=== PATIENT | male | born 1955 | race Caucasian/White ===

== ENCOUNTER 2017-11-12 09:16 | Emergency (ER) | END 2017-11-12 11:08 | disposition home or self-care (01) ==

== ENCOUNTER 2018-04-08 23:00 | Emergency (ER) | END 2018-04-09 02:25 | disposition home or self-care (01) ==

== ENCOUNTER 2018-08-27 20:16 | Emergency (ER) | payer OTHER ==
[~2018-08-27] VITALS: Wt 80.0 kg
[~2018-08-27 20:16] MED LIST: ACET325T33 PO; AZIT250T PO; IBUP-1542 PO
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
[2018-08-27] MEDS ORDERED: HYDROCODONE/APAP (5/325) TAB PO ONE (22:30)
[2018-08-28] MEDS ORDERED: IBUP-1542 PO (00:18)
[2018-08-28] MEDS ORDERED: HYDR-4011 PO (00:18)
[2018-08-28 00:36] VITALS: BP 169/91; PULSE 85; RESP 18
== END 2018-08-28 00:38 | disposition home or self-care (01) ==
LOC: FTE 20:16
DX: S22.42XA Multiple fractures of ribs, left side, initial encounter for closed fracture (principal); F17.210 Nicotine dependence, cigarettes, uncomplicated; V18.4XXA Pedal cycle driver injured in noncollision transport accident in traffic accident, initial encounter
CPT/HCPCS: 71100; Z7502; Z7610

== ENCOUNTER 2019-01-10 23:31 | Inpatient (IN) | payer OTHER ==
[~2019-01-10] VITALS: Ht 190.5 cm; Wt 64.9 kg
[~2019-01-10 23:31] MED LIST changes: +DOCU-144 PO; +GUAI-637 PO; +HYDR-4011 PO; +METO-335 PO
[2019-01-10] MEDS ORDERED: SOD CHLORIDE 0.9% 1,000 ML IV STA (23:59)
[2019-01-11] VITALS (16 sets, daily range): BP systolic 99–141; BP diastolic 68–101; PULSE 59–139; RESP 12–22; Ht 190.5 cm; Wt 64.9 kg
[2019-01-11] MEDS ORDERED: ASPIRIN 81 MG TAB PO ONE (00:30)
[2019-01-11] MEDS ORDERED: ENALAPRILAT 1.25 MG INJ IV ONE (00:30)
[2019-01-11] MEDS ORDERED: NACL 0.9% 3 ML SYG IV SCH (02:00)
[2019-01-11] MEDS ORDERED: ONDANSETRON 4 MG INJ IV PRN (02:00)
[2019-01-11] MEDS ORDERED: NITROGLYCERIN (SL) 0.4 MG TAB SL PRN (02:00)
[2019-01-11] MEDS ORDERED: DOCUSATE SODIUM 100 MG CAP PO PRN (02:00)
[2019-01-11] MEDS ORDERED: ACETAMINOPHEN 325 MG TAB PO PRN (02:00)
[2019-01-11] MEDS ORDERED: BISACODYL (EC) 5 MG TAB PO PRN (02:00)
[2019-01-11] MEDS ORDERED: IOHEXOL 100 ML ONE (02:14)
[2019-01-11] MEDS ORDERED: SOD CHLORIDE 0.9% 100 ML ONE (02:14)
[2019-01-11] MEDS ORDERED: ENOXAPARIN 60 MG/0.6 ML SYG SC ONE (05:00)
[2019-01-11] MEDS ORDERED: DILTIAZEM 25 MG INJ IV ONE (07:00)
[2019-01-11] MEDS ORDERED: NACL 3% FOR INHALATION 15 ML NEBU NEB ONE (07:30)
[2019-01-11] MEDS ORDERED: METOPROLOL 5 MG INJ IV PRN (07:30)
[2019-01-11] MEDS ORDERED: MAGNESIUM SULFATE 2 GM/50 ML 50 ML IVPB ONE (07:30)
[2019-01-11] MEDS: ASPIRIN 81 MG TAB PO SCH (08:29)
[2019-01-11] MEDS: POTASSIUM CHLORIDE (SR) 20 MEQ TAB PO SCH ×2 (08:30→20:21)
[2019-01-11] MEDS: morphine 2 MG INJ IV PRN ×2 (12:38→20:20)
[2019-01-11] MEDS ORDERED: LIDOCAINE 1% (MDV) 20 ML INJ ONE (16:01)
[2019-01-11] MEDS ORDERED: FENTAnyl 50 MCG/ML VIAL ONE (16:38)
[2019-01-11] MEDS ORDERED: CEFAZOLIN 1 GM/50 ML (PMX) 50 ML IVPB ONE (16:52)
[2019-01-11] MEDS ORDERED: SOD CHLORIDE 0.9% 1,000 ML ONE (17:32)
[2019-01-11] MEDS: SOTALOL 80 MG TAB PO SCH (20:21)
[2019-01-11] MEDS: CEFAZOLIN 1 GM/50 ML (PMX) 50 ML IVPB SCH (23:16)
[2019-01-12] VITALS (24 sets, daily range): BP systolic 106–151; BP diastolic 64–97; PULSE 58–79; RESP 15–30
[2019-01-12] MEDS: CEFAZOLIN 1 GM/50 ML (PMX) 50 ML IVPB SCH ×3 (05:44→21:19)
[2019-01-12] MEDS: morphine 2 MG INJ IV PRN ×3 (05:54→19:14)
[2019-01-12] MEDS: ASPIRIN 81 MG TAB PO SCH (09:26)
[2019-01-12] MEDS: SOTALOL 80 MG TAB PO SCH ×2 (09:27→21:19)
[2019-01-13] VITALS (25 sets, daily range): BP systolic 113–149; BP diastolic 74–96; PULSE 64–92; RESP 18–32
[2019-01-13] MEDS: morphine 2 MG INJ IV PRN ×5 (01:16→23:09)
[2019-01-13] MEDS: CEFAZOLIN 1 GM/50 ML (PMX) 50 ML IVPB SCH ×3 (05:04→22:15)
[2019-01-13] MEDS: ASPIRIN 81 MG TAB PO SCH (08:35)
[2019-01-13] MEDS: SOTALOL 80 MG TAB PO SCH ×2 (08:35→22:15)
[2019-01-14] VITALS (16 sets, daily range): BP systolic 102–139; BP diastolic 60–94; PULSE 60–76; RESP 15–25
[2019-01-14] MEDS: CEFAZOLIN 1 GM/50 ML (PMX) 50 ML IVPB SCH ×3 (05:27→21:53)
[2019-01-14] MEDS: morphine 2 MG INJ IV PRN ×4 (08:35→21:06)
[2019-01-14] MEDS: SOTALOL 80 MG TAB PO SCH ×2 (10:19→21:04)
[2019-01-14] MEDS: ASPIRIN 81 MG TAB PO SCH (10:19)
[2019-01-15] VITALS: BP 112/67; PULSE 71; RESP 17
[2019-01-15] MEDS: morphine 2 MG INJ IV PRN ×4 (01:38→23:36)
[2019-01-15 03:42] VITALS: BP 124/68; PULSE 66; RESP 20
[2019-01-15] MEDS: CEFAZOLIN 1 GM/50 ML (PMX) 50 ML IVPB SCH (06:42)
[2019-01-15 07:16] VITALS: BP 134/76; PULSE 68; RESP 17
[2019-01-15] MEDS: ASPIRIN 81 MG TAB PO SCH (08:53)
[2019-01-15 11:40] VITALS: BP 123/64; PULSE 70; RESP 17
[2019-01-15 15:31] VITALS: BP 122/72; PULSE 81; RESP 17
[2019-01-15 20:00] VITALS: BP 115/55; PULSE 80; RESP 18
[2019-01-15] MEDS: METOPROLOL (XL) 25 MG TAB PO SCH (20:37)
[2019-01-16] VITALS (7 sets, daily range): BP systolic 121–151; BP diastolic 66–83; PULSE 68–89; RESP 18–20
[2019-01-16] MEDS: ASPIRIN 81 MG TAB PO SCH (09:01)
[2019-01-16] MEDS: morphine 2 MG INJ IV PRN ×2 (11:16→16:03)
[2019-01-16] MEDS ORDERED: HYDROCODONE/APAP (5/325) TAB PO PRN (16:00)
[2019-01-16] MEDS: HYDROCODONE/APAP (5/325) TAB PO PRN ×2 (18:43→22:44)
[2019-01-16] MEDS: METOPROLOL (XL) 25 MG TAB PO SCH (20:14)
[2019-01-17 00:15] VITALS: BP 134/77; PULSE 91; RESP 19
[2019-01-17 03:57] VITALS: BP 138/84; PULSE 85; RESP 18
[2019-01-17 07:46] VITALS: BP 149/85; PULSE 79; RESP 20
[2019-01-17] MEDS: ASPIRIN 81 MG TAB PO SCH (08:31)
[2019-01-17] MEDS: HYDROCODONE/APAP (5/325) TAB PO PRN ×2 (08:37→16:23)
[2019-01-17 11:48] VITALS: BP 128/87; PULSE 79; RESP 20
[2019-01-17 15:42] VITALS: BP 136/84; PULSE 78; RESP 18
[2019-01-17] MEDS ORDERED: OXYCODONE/ACETAMINOPHEN (5/325) TAB PO PRN (17:00)
[2019-01-17 20:16] VITALS: BP 125/81; PULSE 81; RESP 19
[2019-01-17] MEDS: METOPROLOL (XL) 25 MG TAB PO SCH (20:28)
[2019-01-17] MEDS: OXYCODONE/ACETAMINOPHEN (5/325) TAB PO PRN (21:16)
[2019-01-18 00:06] VITALS: BP 133/79; PULSE 78; RESP 19
[2019-01-18 03:47] VITALS: BP 137/81; PULSE 74; RESP 19
[2019-01-18 07:18] VITALS: BP 133/75; PULSE 70; RESP 20
[2019-01-18] MEDS: ASPIRIN 81 MG TAB PO SCH (08:14)
[2019-01-18] MEDS: OXYCODONE/ACETAMINOPHEN (5/325) TAB PO PRN ×2 (08:14→23:20)
[2019-01-18 11:30] VITALS: BP 120/76; PULSE 71; RESP 20
[2019-01-18 15:06] VITALS: BP 144/78; PULSE 51; RESP 20
[2019-01-18 20:00] VITALS: BP 130/80; PULSE 79; RESP 19
[2019-01-18] MEDS: morphine 2 MG INJ IV PRN (20:46)
[2019-01-18] MEDS: METOPROLOL (XL) 25 MG TAB PO SCH (20:47)
[2019-01-18] MEDS ORDERED: morphine 2 MG INJ IV PRN (23:30)
[2019-01-19 02:01] VITALS: BP 100/56; PULSE 74; RESP 18
[2019-01-19 08:14] VITALS: BP 110/67; PULSE 77; RESP 20
[2019-01-19] MEDS: ASPIRIN 81 MG TAB PO SCH (09:01)
[2019-01-19] MEDS: OXYCODONE/ACETAMINOPHEN (5/325) TAB PO PRN ×3 (09:01→17:24)
[2019-01-19 12:59] VITALS: BP 131/86; PULSE 67; RESP 18
[2019-01-19 19:00] VITALS: BP 132/71; PULSE 86; RESP 19
[2019-01-19] MEDS: METOPROLOL (XL) 25 MG TAB PO SCH (20:25)
[2019-01-20] MEDS: OXYCODONE/ACETAMINOPHEN (5/325) TAB PO PRN ×4 (01:44→21:54)
[2019-01-20 01:45] VITALS: BP 108/58; PULSE 84; RESP 18
[2019-01-20 07:36] VITALS: BP 114/66; PULSE 76; RESP 18
[2019-01-20] MEDS ORDERED: ASPIRIN (EC) 81 MG TAB PO SCH (09:00)
[2019-01-20 14:00] VITALS: BP 126/81; PULSE 86; RESP 18
[2019-01-20 20:15] VITALS: BP 128/82; PULSE 92; RESP 17
[2019-01-20] MEDS: METOPROLOL (XL) 25 MG TAB PO SCH (20:42)
[2019-01-21 02:39] VITALS: BP 132/66; PULSE 83; RESP 19
[2019-01-21] MEDS: OXYCODONE/ACETAMINOPHEN (5/325) TAB PO PRN ×3 (03:59→14:04)
[2019-01-21 07:45] VITALS: BP 128/77; PULSE 71; RESP 18
[2019-01-21 13:58] VITALS: BP 146/63; PULSE 77; RESP 18
== END 2019-01-21 17:30 | disposition home or self-care (01) | DRG 315 ==
LOC: E/R 23:31 → 6WM 01-11 01:19 → ICU 01-11 02:40 → 6WM 01-11 06:48 → ICU 01-11 15:44 → 6WM 01-14 13:30 → MS3 01-18 23:50
PROVIDERS: ADMIT Family Medicine; ATTEND Internal Medicine
PROC: 0W9D30Z Drainage of Pericardial Cavity with Drainage Device, Percutaneous Approach (ICD-10-PCS; principal; 2019-01-11 16:30)
DX: I31.3 Pericardial effusion (noninflammatory) (principal); C34.90 Malignant neoplasm of unspecified part of unspecified bronchus or lung; Z68.1 Body mass index [BMI] 19.9 or less, adult; R64 Cachexia; C79.51 Secondary malignant neoplasm of bone; C79.89 Secondary malignant neoplasm of other specified sites; I31.4 Cardiac tamponade; E86.0 Dehydration; I10 Essential (primary) hypertension; I48.0 Paroxysmal atrial fibrillation; Z59.0 Homelessness; Z72.0 Tobacco use; N40.0 Benign prostatic hyperplasia without lower urinary tract symptoms; R07.81 Pleurodynia; R63.4 Abnormal weight loss; J43.2 Centrilobular emphysema; D63.8 Anemia in other chronic diseases classified elsewhere; B19.20 Unspecified viral hepatitis C without hepatic coma; G89.3 Neoplasm related pain (acute) (chronic)
CPT/HCPCS: 33010; 36415; 70450; 71045; 71275; 72157; 74176; 77075; 80048; 80053; 80307; 82378; 82550; 82553; 82728; 82784; 82945; 83540; 83615; 83690; 83735; 83880; 84153; 84154; 84155; 84157; 84165; 84439; 84443; 84484; 85025; 85378; 85610; 85730; 86320; 86480; 86580; 86592; 86703; 86706; 86803; 87070; 87081; 87102; 87116; 87340; 87556; 88104; 88305; 88341; 88342; 89051; 93005; 93306; 93308; 93970; 96374; J0690; J2270; J3010; J3475; J7030; J7040; Q9967